=== PATIENT | male | born 1995 | race African-American/Black ===

== ENCOUNTER 2019-12-20 03:10 | Emergency (ER) | payer MEDICAID, OTHER ==
[~2019-12-20] VITALS: Ht 188 cm; Wt 127.3 kg
[2019-12-20] MEDS ORDERED: IBUPROFEN 400 MG TABLET PO ONE (04:30)
[2019-12-20] MEDS ORDERED: ACETAMINOPHEN 325 MG TABLET PO ONE (04:30)
[2019-12-20 04:35] VITALS: BP 121/74
== END 2019-12-20 05:11 | disposition home or self-care (01) ==
LOC: EMS 03:10
DX: M94.0 Chondrocostal junction syndrome [Tietze] (principal)
CPT/HCPCS: 93005; 71045-TC